=== PATIENT | female | born 1940 | race Caucasian/White ===

== ENCOUNTER 2019-10-05 11:52 | Emergency (ER) | payer OTHER ==
--- NOTE | 2019-10-05 13:02 | ER Document Report ---
ED Medical Screen (RME) - General Chief Complaint: Abdominal Pain Stated Complaint: SIDE AND BACK PAIN Time Seen by Provider: 10/05/19 12:48 Mode of Arrival: Wheelchair Information source: Patient, Relative - HPI Notes: 10/05/19 13:00 78-year-old female with a history of hypertension GERD presents to the emergency room with left lower quadrant abdominal pain that radiates to her pelvic area that started this morning. States she is never had a colonoscopy. Worse with movement. Last bowel movement was this morning. Patient also has pedal edema that she takes a "water pill for". Denies history of CHF, chest pain, shortness of breath. No [id number]-[id number] medications have been tried. Patient is from out of state, from [place]. I have greeted and performed a rapid initial assessment of this patient. A comprehensive ED assessment and evaluation of the patient, analysis of test results and completion of the medical decision making process will be conducted by additional ED providers. PHYSICAL EXAMINATION: CV: s1, s2 regular LUNGS: No respiratory distress abd: LLQ abd pain on palpation. SKIN: Warm, Dry, normal turgor, no rashes or lesions noted. Bilateral pitting pedal edema - Related Data Allergies/Adverse Reactions: No Known Allergies Allergy (Verified 10/05/19 12:51) Physical Exam - Vital signs Vitals: Temp Pulse Resp BP Pulse Ox 98.8 F 69 16 111/54 L 97 10/05/19 12:03 10/05/19 12:10/05/19 12:03 10/05/19 12:03 10/05/19 12:03 Course - Vital Signs Vital signs: Temp Pulse Resp BP Pulse Ox 98.8 F 69 16 111/54 L 97 10/05/19 12:03 10/05/19 12:03 10/05/19 12:03 10/05/19 12:10/05/19 12:03
[2019-10-05 13:48] LABS: ABSOLUTE EOSINOPHILS # (AUTO) 0.1 10^3/uL (0.0-0.6); ABSOLUTE MONOCYTES (AUTO) 0.7 10^3/uL (0.1-1.4); ABSOLUTE NEUT (AUTO) 3.9 10^3/uL (1.7-8.2); BASOPHILS % (AUTO) 0.6 % (0-2); EOSINOPHILS % (AUTO) 1.5 % (0-6); HEMOGLOBIN 13.8 g/dL (12.0-15.5); LYMPHOCYTES % (AUTO) 39.2 % (13-45); MEAN CORPUSCULAR HEMOGLOBIN 30.3 pg (27.0-33.4); MEAN CORPUSCULAR HGB CONC 34.6 g/dL (32.0-36.0); MEAN CORPUSCULAR VOLUME 88 fl (80-97); MONOCYTES % (AUTO) 8.4 % (3-13); PLATELET COUNT 297 10^3/uL (150-450); RED BLOOD COUNT 4.57 10^6/uL (3.72-5.28); RED CELL DISTRIBUTION WIDTH 13.9 % (11.5-14.0); SEGMENTED NEUTROPHILS % (AUTO) 50.3 % (42-78); TOTAL CELLS COUNTED % (AUTO) 100 %; WHITE BLOOD COUNT 7.7 10^3/uL (4.0-10.5)
[2019-10-05 13:56] LABS: ALBUMIN 4.4 g/dL (3.5-5.0); ALKALINE PHOSPHATASE 70 U/L (38-126); ANION GAP 7 (5-19); ASPARTATE AMINO TRANSFERASE 35 U/L (14-36); BILIRUBIN,TOTAL 0.8 mg/dL (0.2-1.3); BLOOD UREA NITROGEN 21 mg/dL (7-20); CALCIUM 9.3 mg/dL (8.4-10.2); CARBON DIOXIDE 28 mmol/L (22-30); CHLORIDE 100 mmol/L (98-107); GLUCOSE 100 mg/dL (75-110); POTASSIUM 4.5 mmol/L (3.6-5.0); TOTAL PROTEIN 7.1 g/dL (6.3-8.2)
[2019-10-05 15:08] LABS: APPEARANCE,URINE CLEAR; BILIRUBIN,URINE NEGATIVE (NEGATIVE); COLOR,URINE STRAW; GLUCOSE, URINE NEGATIVE (NEGATIVE); KETONES,URINE NEGATIVE (NEGATIVE); LEUKOCYTE ESTERASE,URINE TRACE (NEGATIVE); NITRITE,URINE NEGATIVE (NEGATIVE); PROTEIN,URINE NEGATIVE (NEGATIVE); URINE SPECIFIC GRAVITY 1.018; UROBILINOGEN,URINE NEGATIVE mg/dL (<2.0)
--- NOTE | 2019-10-05 15:11 | RADIOLOGY REPORT (SQ) ---
EXAM DESCRIPTION: CT ABD/PELVIS WITH IV ONLY IMAGES COMPLETED DATE/TIME: 10/05/2019 2:43 pm REASON FOR STUDY: LLQ abd pain, sudden onset COMPARISON: None. TECHNIQUE: CT scan of the abdomen and pelvis performed using helical scanning technique with dynamic intravenous contrast injection. No oral contrast. Images reviewed with lung, soft tissue, and bone windows. Reconstructed coronal and sagittal MPR images reviewed. Delayed images for evaluation of the urinary system also acquired. All images stored on PACS. All CT scanners at this facility use dose modulation, iterative reconstruction, and/or weight based d osing when appropriate to reduce radiation dose to as low as reasonably achievable (ALARA). [facility]: Dose Right [facility]: CareDose [facility]: Dose Right [facility]: Teradose 4D [facility]: MindJolt CONTRAST TYPE AND DOSE: contrast/concentration: Isovue 350.00 mmol/ml; Total Contrast Delivered: 96. 0 ml; Total Saline Delivered: 40.9 ml RENAL FUNCTION: BUN 21 creatinine 0.87 RADIATION DOSE: CT Rad equipment meets quality standard of care and radiation dose reduction techniq ues were employed. CTDIvol: 10.9 - 15.4 mGy. DLP: 1326 mGy-cm.. LIMITATIONS: None. FINDINGS: LOWER CHEST: 12.5 mm noncalcified nodule. In the anterior right base. LIVER: Normal size. No masses. No dilated ducts. SPLEEN: Normal size. No focal lesions. PANCREAS: No masses. No significant calcifications. No adjacent inflammation or peripancreatic fluid collections. Pancreatic duct not dilated. GALLBLADDER: Surgically absent. ADRENAL GLANDS: No significant masses or asymmetry. RIGHT KIDNEY AND URETER: No solid masses. No significant calcifications. No hydronephrosis or hyd roureter. LEFT KIDNEY AND URETER: No solid masses. No significant calcifications. No hydronephrosis or hydr oureter. AORTA AND VESSELS: No aneurysm. No dissection. Renal arteries, SMA, celiac without stenosis. RETROPERITONEUM: No retroperitoneal adenopathy, hemorrhage or masses. BOWEL AND PERITONEAL CAVITY: Occasional descending and sigmoid diverticula with no associated inflamm ation APPENDIX: Not identified. PELVIS: No mass. No free fluid. Normal bladder. ABDOMINAL WALL: No masses. No hernias. BONES: No significant or acute findings. OTHER: No other significant finding. IMPRESSION: 1. 12.5 mm noncalcified nodule in the anterior right base. Recommend PET-CT. 2. Very mild diverticulosis coli with no acute inflammation. TECHNICAL DOCUMENTATION: JOB ID: [id number] Quality ID # [id number]: Final reports with documentation of one or more dose reduction techniques (e.g., Au tomated exposure control, adjustment of the mA and/or kV according to patient size, use of iterative reconstruction technique) 2010 [employer]- All Rights Reserved Reading location - IP/workstation name: [email or web address]
--- NOTE | 2019-10-05 16:44 | ER Document Report ---
ED General - General Chief Complaint: Abdominal Pain Stated Complaint: SIDE AND BACK PAIN Time Seen by Provider: 10/05/19 12:48 Mode of Arrival: Wheelchair - HPI Notes: Patient is an 78-year-old female who presents to the emergency department for evaluation of left leg pain. She is here from [place], spending time with her daughter. She woke up this morning, went to stand, had pain in her left fla nk and left lower abdomen. She could not really describe it. It was worsened by walking, the pain was not really noticeable while she was sitting. She denies any fevers or chills. She ate breakfast this morning. No nausea or vomiting. Normal bowel movement earlier today. Normal urination. By the time I evaluate the patient, she really states that her pain has all but disappeared. - Related Data Allergies/Adverse Reactions: No Known Allergies Allergy (Verified 10/05/19 12:51) Home Medications: Aspirin, Lasix, antihypertensive, medication for GERD -patient unsure of other details Past Medical History - General Information source: Patient, Relative - Social History Smoking Status: Former Smoker Chew tobacco use (# tins/day): No Frequency of alcohol use: None Drug Abuse: None Family History: Reviewed & Not Pertinent Patient has homicidal ideation: No - Past Medical History Cardiac Medical History: Reports: Hx Hypertension GI Medical History: Reports: Hx Gastroesophageal Reflux Disease Past Surgical History: Reports: Hx Cholecystectomy Review of Systems - Review of Systems Genitourinary: See HPI -: Yes All other systems reviewed and negative Physical Exam - Vital signs Vitals: Temp Pulse Resp BP Pulse Ox 98.8 F 69 16 111/54 L 97 10/05/19 12:03 10/05/19 12:03 10/05/19 12:03 10/05/19 12:03 10/05/19 12:03 - Notes Notes: Vital signs reviewed, please refer to chart. Head is normocephalic, atraumatic. Pupils equal round, reactive to light. Neck is supple without meningismus. Heart is regular rate and rhythm. Lungs are clear to auscultation bilaterally. Abdomen is soft, nontender, normoactive bowel sounds throughout. Extremities without cyanosis, clubbing. Posterior calves are nontender. Peripheral pulses are equal. Skin is warm and dry. Patient is awake, alert, neurological exam is nonfocal. Course - Re-evaluation Re-evalutation: 10/05/19 16:45 Patient presents to the emergency department for evaluation. She has some left flank pain and left lower quadrant abdominal pain. Her exam is unremarkable. Her pain was worsened by movement. She had no associated symptoms. I strongly suspect this is musculoskeletal. The patient is here visiting, sleeping on a new bed, and engaging in more physical activity than normal. I encouraged her to have moist heat to the area, Tylenol as needed for moderate pain. They are amenable to this plan. There given information in regards to the lung nodule and the need for follow-up in regards to this. She is given a copy of her radi ology report and is to follow this up with her primary care provider back in [place]. Otherwise, return to the ED with worsening or new concerning symptoms of any sort. - Vital Signs Vital signs: Temp Pulse Resp BP Pulse Ox 98 F 70 18 131/62 H 97 10/05/19 16:53 10/05/19 16:53 10/05/19 16:53 10/05/19 16:53 10/05/19 16:53 - Laboratory Result Diagrams: 10/05/19 13:16 10/05/19 13:16 Laboratory results interpreted by me: 10/05/19 10/05/19 13:16 14:50 Sodium 135.4 L BUN 21 H Ur Leukocyte Esterase TRACE H Discharge - Discharge Clinical Impression: Left flank pain, Nodule of right lung Condition: Stable Disposition: HOME, SELF-CARE Instructions: Flank Pain ([facility]) Additional Instructions: No clear cause was identified for your pain today. Moist heat to the painful area. Tylenol as needed for severe pain. There was a nodule noted on your CT. This needs to be followed up by your primary care provider in [place]. If you develop worsening or new concerning symptoms of any sort, please return to the emergency department for further evaluation.
[2019-10-05 17:00] VITALS: BP 131/62
== END 2019-10-05 16:53 | disposition home or self-care (01) ==
LOC: ER 11:52
DX: R10.9 Unspecified abdominal pain (principal); R10.32 Left lower quadrant pain; M79.605 Pain in left leg; R91.1 Solitary pulmonary nodule; I10 Essential (primary) hypertension; K21.9 Gastro-esophageal reflux disease without esophagitis; Z79.82 Long term (current) use of aspirin; Z79.899 Other long term (current) drug therapy; Z87.891 Personal history of nicotine dependence; Z90.49 Acquired absence of other specified parts of digestive tract
CPT/HCPCS: 36415; 74177; 80053; 81001; 83690; 83880; 85025; 99284